=== PATIENT | male | born 1950 | race Caucasian/White ===

== ENCOUNTER 2021-06-20 09:19 | Outpatient (CLI) | payer MEDICARE ==
[2021-06-18 12:25] VITALS: BMI 34.9
== END 2021-06-20 09:20 | disposition home or self-care (01) ==
LOC: LABBT 09:19
PROVIDERS: ATTEND Neurological Surgery
DX: Z01.810 Encounter for preprocedural cardiovascular examination (principal); N20.0 Calculus of kidney
CPT/HCPCS: 80048; 81001; 85027; 85610; 85730; 86850; 86900; 86901; 87086; 93005; 93010; U0003; U0005

== ENCOUNTER 2021-06-20 09:30 | Observation (INO) | payer MEDICARE ==
[2021-06-20 10:43] LABS: Mean Corpuscular HGB CONC 27.9 g/dL (32.0-36.0); Mean Corpuscular Hemoglobin 21.5 pg (27.0-33.0); Mean Platelet Volume 9.4 fl (7.4-10.4); Platelet Count 210 10x3/uL (150-450); RBC Distribution Width 16.4 % (11.5-14.5); Red Blood Cell (RBC) Count 4.65 10x6/uL (4.32-5.72); White Blood Cell (WBC) Count 5.1 10x3/uL (3.5-10.5)
[2021-06-20 10:56] LABS: Bilirubin Neg (Negative); Blood, Urine 150 (Negative); Clarity Cloudy (Clear); Glucose, Urine (Dipstick) Normal (Negative); Ketone, Urine Negative (Negative); Leukocyte 500 (Negative); Nitrite Positive (Negative); Protein, Urine (Dipstick) 100 mg/dl (Neg-Trace); Specific Gravity, Urine 1.015 (1.002-1.036); Urobilinogen Normal mg/dL (Less than 2)
[2021-06-20 11:04] LABS: Anion Gap 13 mmol/L (10-20); BUN (Urea Nitrogen) 27 mg/dL (8.4-25.7); Calc. Creatinine Clearance 102 mL/min (70-130); Calcium 8.8 mg/dL (7.8-10.44); Carbon Dioxide 24 mmol/L (23-31); Chloride 106 mmol/L (98-107); Glucose 94 mg/dL (80-115); Potassium 4.3 mmol/L (3.5-5.1); Sodium 139 mmol/L (136-145)
[2021-06-20 11:05] LABS: PTT 26.5 sec (22.0-33.0); Prothrombin Time 10.7 sec (9.5-12.1)
[2021-06-20 11:32] LABS: Bacteria/HPF 2+ HPF (None Seen); RBC/HPF Greater than 50 HPF (0-3); WBC/HPF Greater Than 50 HPF (0-3)
[2021-06-21 16:50] LABS: SARS-CoV-2 PCR by NAA Not Detected (NotDetected)
[2021-06-25] MEDS ORDERED: Bupivacaine 0.25% HCL 30 ML VIAL ONE (09:35)
[2021-06-25] MEDS ORDERED: Bupivacaine PF 0.5% 30 ML VIAL ONE (09:35)
[2021-06-25] MEDS ORDERED: Iothalamate Meglumine 60% 50 ML VIAL FS ONE (09:36)
[2021-06-25] MEDS ORDERED: Midazolam HCl 2 mg/2 ml Vial ONE (09:42)
[2021-06-25] MEDS ORDERED: HYDROmorphone 2 MG/ML VIAL ONE (09:42)
[2021-06-25] MEDS ORDERED: Fentanyl 100 MCG/2 ML VIAL ONE (09:42)
[2021-06-25] MEDS ORDERED: ceFAZolin 2 GM/DEX 5% 100 ML BAG ONE (09:57)
[2021-06-25] MEDS ORDERED: PROPOFOL 200 MG/20 ML VIAL ONE (10:08)
[2021-06-25] MEDS ORDERED: PHENYLEPHRINE-NS 100 MCG/ML 10 ML SYRINGE ONE (10:08)
[2021-06-25] MEDS ORDERED: ePHEDrine 50 MG/ML VIAL ONE (10:08)
[2021-06-25] MEDS ORDERED: Ondansetron PF 4 MG/2 ML Vial ONE (10:08)
[2021-06-25] MEDS ORDERED: Glycopyrrolate 0.2 MG/ML 5 ML SYRINGE ONE (10:08)
[2021-06-25] MEDS ORDERED: Lidocaine 1% PF 5 ML VIAL ONE (10:08)
[2021-06-25] MEDS ORDERED: Rocuronium Bromide 10 MG/ML (10ML VIAL) ONE (10:08)
[2021-06-25] MEDS ORDERED: Ketorolac Tromethamine 30 MG/ML VIAL ONE (10:08)
[2021-06-25] MEDS ORDERED: Dexamethasone 20 MG/5 ML VIAL ONE (10:08)
[2021-06-25] MEDS ORDERED: ePHEDrine Sulfate 50 MG/10 ML VIAL ONE (11:49)
[2021-06-25] MEDS ORDERED: Promethazine HCl 25 MG/ML VIAL IVPB PRN (12:18)
[2021-06-25] MEDS ORDERED: Meperidine HCl/PF 25 MG/ML VIAL SLOW IVP PRN (12:18)
[2021-06-25] MEDS ORDERED: HYDROmorphone 2 MG/ML VIAL SLOW IVP PRN (12:18)
[2021-06-25] MEDS ORDERED: Ondansetron HCl/PF 4 MG/2 ML Vial IVP PRN (12:18)
[2021-06-25] MEDS ORDERED: Promethazine HCl 25 MG/ML VIAL IM PRN (12:18)
[2021-06-25] MEDS ORDERED: Morphine 4 MG/ML VIAL SLOW IVP PRN (12:53)
[2021-06-25] MEDS ORDERED: diphenhydrAMINE 50 MG/ML VIAL IVP PRN (12:53)
[2021-06-25] MEDS ORDERED: Ondansetron PF 4 MG/2 ML Vial IVP PRN (12:53)
[2021-06-25] MEDS ORDERED: HYDROcodone/Acetaminophen 5/325 mg Tablet PO PRN (12:53)
[2021-06-25] MEDS ORDERED: hydrALAZINE 20 MG/ML VIAL SLOW IVP PRN (12:53)
[2021-06-25] MEDS ORDERED: Hyoscyamine Sulfate SL 0.125 mg Tablet SL PRN (12:53)
[2021-06-25] MEDS ORDERED: Zolpidem Tartrate 5 MG TAB PO PRN (12:53)
[2021-06-25] MEDS ORDERED: Levofloxacin 500 mg/D5W 100 ml Premix Bag ONE (15:12)
[2021-06-25] MEDS: Sodium Chloride 0.9% 1,000 ML IV SCH ×2 (15:20→23:49)
[2021-06-25] MEDS: Ketorolac Tromethamine 30 MG/ML VIAL IVP SCH ×2 (17:41→23:49)
[2021-06-25 18:50] VITALS: BMI 34.9
[2021-06-25] MEDS: Famotidine/PF 20 mg/2ml Vial SLOW IVP SCH (19:59)
[2021-06-25] MEDS: Docusate 100 MG CAP PO SCH (20:00)
[2021-06-26 05:21] LABS: #Lymphocytes 0.4 thou/uL (1.20-3.40); #Monocytes 0.9 thou/uL (0.11-0.59); #Neutrophils 5.2 thou/uL (1.40-6.50); %Lymphocytes 6.9 % (21.0-51.0); %Monocytes 13.1 % (0.0-10.0); %Neutrophils 80.1 % (42.0-75.0); Hemoglobin 8.4 g/dL (14.0-18.0); Mean Corpuscular HGB CONC 30.5 g/dL (32.0-36.0); Mean Corpuscular Hemoglobin 22.8 pg (27.0-31.0); Mean Corpuscular Volume 74.5 fL (78.0-98.0); Mean Platelet Volume 7.7 fL (7.4-10.4); Platelet Count 178 thou/uL (130-400); RBC Distribution Width 15.3 % (11.5-14.5); Red Blood Cell (RBC) Count 3.67 mill/uL (4.70-6.10); White Blood Cell (WBC) Count 6.5 thou/uL (4.8-10.8)
[2021-06-26 05:37] LABS: Anion Gap 13 mmol/L (10-20); BUN (Urea Nitrogen) 18 mg/dL (8.4-25.7); Calc. Creatinine Clearance 117 mL/min (70-130); Calcium 8.5 mg/dL (7.8-10.44); Carbon Dioxide 21 mmol/L (23-31); Chloride 104 mmol/L (98-107); Glucose 141 mg/dL (80-115); Potassium 4.3 mmol/L (3.5-5.1); Sodium 134 mmol/L (136-145)
[2021-06-26] MEDS: Ketorolac Tromethamine 30 MG/ML VIAL IVP SCH ×2 (06:01→12:37)
[2021-06-26] MEDS ORDERED: Tamsulosin HCl 0.4 MG CAP PO SCH (09:00)
[2021-06-26] MEDS: Sodium Chloride 0.9% 1,000 ML IV SCH (09:07)
[2021-06-26] MEDS: Famotidine/PF 20 mg/2ml Vial SLOW IVP SCH (09:36)
[2021-06-26] MEDS: Docusate 100 MG CAP PO SCH (09:36)
[2021-06-26 11:48] VITALS: BP 161/92; TEMP 97.7
[2021-07-02 19:38] LABS: CA Oxalate Monohydrate 60 % (.); Color Brown (.); Stone Weight 4165 mg (.)
== END 2021-06-26 13:43 | disposition home or self-care (01) ==
LOC: EDSTATUS 06-25 09:30 → SURG A 06-25 09:47
PROVIDERS: ADMIT Urology; ATTEND Urology
PROC: 0TC13ZZ Extirpation of Matter from Left Kidney, Percutaneous Approach (ICD-10-PCS; principal; 2021-06-25)
DX: N20.0 Calculus of kidney (principal); I10 Essential (primary) hypertension; Z79.899 Other long term (current) drug therapy; Z20.822 Contact with and (suspected) exposure to COVID-19; Z01.810 Encounter for preprocedural cardiovascular examination
CPT/HCPCS: 50081; 74018; 76000; 80048 ×2; 81001; 82365; 85025; 85027; 85610; 85730; 86850; 86900; 86901; 87077; 87086; 96374; 96375; 96376 ×2; C2617; G0378 ×2; Q9961; U0003; U0005; 36415; 88300; 93005; 93010; J1100; J1170; J1885; J1956; J2250; J2405; J2704; J3010; J3490; J7050; S0020; S0028